=== PATIENT | female | born 1980 | race African-American/Black ===

== ENCOUNTER 2024-08-29 15:41 | Emergency (ER) | payer SELFPAY ==
[~2024-08-29] VITALS: Ht 167.6 cm; Wt 75.0 kg
[2024-08-29 15:44] VITALS: TEMP 98.7; O2SAT 100
[2024-08-29 16:31] LABS: BASOPHILS % 0.3 % (0.0-2.0); EOSINOPHILS % 0.8 % (0.0-5.0); HEMATOCRIT. 36.5 % (36.0-48.0); HEMOGLOBIN. 11.9 g/dL (12.0-16.0); LYMPHOCYTES % 22.4 % (20.0-50.0); MEAN CORPUSCULAR HEMOGLOBIN 26.8 pg (28.0-32.0); MEAN CORPUSCULAR HGB CONC 32.6 g/dL (31.0-37.0); MEAN CORPUSCULAR VOLUME 82.2 fL (81.0-99.0); MEAN PLATELET VOLUME 7.6 fl (7.4-10.4); MONOCYTES % 5.8 % (2.0-8.0); NEUTROPHILS % 70.7 % (40.0-76.0); PLATELET 364 x1000/uL (130-400); RED BLOOD CELL COUNT 4.44 mill/uL (4.2-5.4); RED CELL DISTRIBUTION WIDTH 16.1 % (11.6-14.6); WHITE BLOOD COUNT 8.5 x1000/uL (4.5-11.0)
[2024-08-29 16:36] LABS: CHLORIDE 106 mEq/L (98-107); SODIUM 141 mEq/L (136-145)
[2024-08-29 16:37] LABS: CARBON DIOXIDE 24 mEq/L (21-32)
[2024-08-29 16:38] LABS: CALCIUM 9.8 mg/dL (8.7-10.4)
[2024-08-29 16:40] LABS: HCG SCREEN NEGATIVE
[2024-08-29 16:41] LABS: PROTHROMBIN TIME 11.3 sec (9.6-11.0)
[2024-08-29 16:42] LABS: CREATININE 0.6 mg/dL (0.6-1.0); GLUCOSE 99 mg/dL (70-105)
[2024-08-29 16:43] LABS: UREA NITROGEN BLOOD 18 mg/dL (9-23)
[2024-08-29 16:49] LABS: T4 FREE 1.35 ng/dL (0.89-1.76); THYROID STIMULATING HORMONE 2.02 uIU/mL (0.55-4.78)
[2024-08-29 16:52] LABS: TROPONIN I HIGH SENSITIVITY < 4 ng/L (3.0-34)
[2024-08-29 17:31] VITALS: BP 133/78; PULSE 94; RESP 15; O2SAT 98
== END 2024-08-29 17:33 | disposition home or self-care (01) ==
LOC: ER 15:41
DX: F41.1 Generalized anxiety disorder (principal); Z98.890 Other specified postprocedural states; F10.90 Alcohol use, unspecified, uncomplicated; Y90.9 Presence of alcohol in blood, level not specified
CPT/HCPCS: 36415; 71045; 80048; 84439; 84443; 84484; 84703; 85025; 93005; 99285